=== PATIENT | female | born 1985 | race American Indian/Alaskan Native ===

== ENCOUNTER 2020-08-08 12:35 | Outpatient (CLI) | payer OTHER | END 2020-08-08 14:26 | disposition home or self-care (01) | LOC: NST 12:35 | PROVIDERS: ATTEND Obstetrics & Gynecology | DX: Z34.83 Encounter for supervision of other normal pregnancy, third trimester (principal) ==

== ENCOUNTER 2020-08-08 13:15 | Inpatient (IN) | payer OTHER ==
[~2020-08-08] VITALS: Ht 165.1 cm; Wt 78.5 kg
[2020-08-22] MEDS ORDERED: PRENATAL TABLE1 EAC1 PO (08:25)
== END 2020-08-24 12:23 | disposition home or self-care (01) | DRG 807 ==
LOC: OB/GYN 08-22 07:30 → LDR 08-22 07:30 → OB/GYN 08-22 07:30
PROVIDERS: ADMIT Obstetrics & Gynecology; ATTEND Obstetrics & Gynecology
PROC: 10E0XZZ Delivery of Products of Conception, External Approach (ICD-10-PCS; principal; 2020-08-22)
PROC: 0W8NXZZ Division of Female Perineum, External Approach (ICD-10-PCS; 2020-08-22)
PROC: 4A1HXFZ Monitoring of Products of Conception, Cardiac Rhythm, External Approach (ICD-10-PCS; 2020-08-22)
DX: O80 Encounter for full-term uncomplicated delivery (principal); Z37.0 Single live birth; Z3A.39 39 weeks gestation of pregnancy; Z20.822 Contact with and (suspected) exposure to COVID-19

== ENCOUNTER 2020-08-19 09:48 | Outpatient (CLI) | payer OTHER | END 2020-08-19 10:45 | disposition home or self-care (01) | LOC: NST 09:48 | PROVIDERS: ATTEND Obstetrics & Gynecology | DX: Z34.83 Encounter for supervision of other normal pregnancy, third trimester (principal) ==

== ENCOUNTER 2020-08-22 02:16 | Outpatient (CLI) | payer OTHER ==
[2020-08-22] MEDS ORDERED: PRENATAL TABLE1 EAC1 PO (08:25)
== END 2020-08-22 08:54 | disposition still patient (30) ==
LOC: OBS/DEL 02:16
PROVIDERS: ATTEND Obstetrics & Gynecology
DX: O47.1 False labor at or after 37 completed weeks of gestation (principal); Z3A.39 39 weeks gestation of pregnancy

== ENCOUNTER → 2022-03-12 | Outpatient (CLI) | payer OTHER ==
[~2022-03-12] MED LIST: PRENATAL TABLE1 EAC1 PO
== END | disposition home or self-care (01) ==
LOC: SONOGRAMA 09:32
PROVIDERS: ATTEND Obstetrics & Gynecology Reproductive Endocrinology
DX: N93.8 Other specified abnormal uterine and vaginal bleeding (principal)

== ENCOUNTER 2024-03-01 12:41 | Outpatient (CLI) | payer OTHER | END 2024-03-01 13:08 | disposition home or self-care (01) | LOC: RAD 12:41 | PROVIDERS: ATTEND Orthopaedic Surgery | DX: M20.12 Hallux valgus (acquired), left foot (principal) ==